=== PATIENT | male | born 1955 | race African-American/Black ===

== ENCOUNTER → 2018-01-26 | Outpatient (CLI) | payer OTHER ==
--- NOTE | 2018-01-26 15:33 | RAD ---
3 view study of the left foot INDICATIONS: Chronic foot pain. FINDINGS: No acute fracture or dislocation or osteolytic process is evident. 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 Small plantar spur of the calcaneus is seen. More prominent spurring of the attachment of the Achilles tendon to the posterior aspect of the calcaneus is seen. IMPRESSION: No acute osseous abnormality. Electronically signed by: Ganesh Valle MD (01/26/2018 3:30 PM) [place] [id number]
== END | disposition home or self-care (01) ==
LOC: RAD 14:38
DX: M19.072 Primary osteoarthritis, left ankle and foot (principal); M77.32 Calcaneal spur, left foot; R35.1 Nocturia; R79.89 Other specified abnormal findings of blood chemistry; R68.82 Decreased libido
CPT/HCPCS: 73630